=== PATIENT | female | born 1995 | race Caucasian/White ===

== ENCOUNTER → 2020-12-17 | Outpatient (CLI) | payer OTHER ==
--- NOTE | 2020-12-18 11:37 | USB ---
Reason for exam: clinical finding. Physical Findings: Nurse did not find any significant physical abnormalities on exam. US Breast LT Left complete breast ultrasound includes all four quadrants, the retroareolar region and axilla. Finding demonstrates no cystic or solid lesion seen. These results were verbally communicated with the patient and result sheet given to the patient on 12/17/20. ASSESSMENT: Negative, BI-RAD 1 RECOMMENDATION: Routine screening mammogram of both breasts at age 38. Manage on a clinical basis with regard to left breast pain.
== END | disposition home or self-care (01) ==
LOC: RADUSWWP 14:57
PROVIDERS: ATTEND Family Medicine
DX: N63.24 Unspecified lump in the left breast, lower inner quadrant (principal)

== ENCOUNTER → 2022-09-05 | Outpatient (CLI) | payer MEDICAID ==
--- NOTE | 2022-09-16 13:16 | P.CEMON ---
7 Day Event monitor note: Patient wore an event monitor for 7 days from 09/05/2022 through 09/12/2022. Findings: Patient's baseline heart rate was sinus rhythm. There were no signficant atrial fibrillation, atrial flutter, or ventricular tachycardia episodes. There were no significant pauses greater than 2 seconds. There were a total of 79 patient activated and automatically captured events corresponding with sinus rhythm and sinus tachycardia. One of the dizzy episodes corresponded with 1 PVC. There were rare PACs and rare PVCs. Conclusions: 7 day event monitor showing normal sinus rhythm and sinus tachycardia. Patient activated events corresponding predominantly with sinus rhythm and sinus tachycardia and once with a loan PVC.
--- NOTE | 2022-09-19 10:26 | EM ---
7 Day Event monitor note: Patient wore an event monitor for 7 days from 09/05/2022 through 09/12/2022. Findings: Patient's baseline heart rate was sinus rhythm. There were no significant atrial fibrillation, atrial flutter, or ventricular tachycardia episodes. There were no significant pauses greater than 2 seconds. There were a total of 79 patient activated and automatically captured events corresponding with sinus rhythm and sinus tachycardia. One of the dizzy episodes corresponded with 1 PVC. There were rare PACs and rare PVCs. Conclusions: 7 day event monitor showing normal sinus rhythm and sinus tachycardia. Patient activated events corresponding predominantly with sinus rhythm and sinus tachycardia and once with a loan PVC. [facility]
== END | disposition home or self-care (01) ==
LOC: RADECHMAIN 08:01
PROVIDERS: ATTEND Family Medicine
DX: I47.9 Paroxysmal tachycardia, unspecified (principal)
CPT/HCPCS: 93270